=== PATIENT | female | born 1985 | race Caucasian/White ===

== ENCOUNTER 2017-05-11 22:53 | Observation (INO) | payer BC ==
[~2017-05-11] VITALS: Ht 182.9 cm; Wt 111.0 kg
[2017-05-11 23:12] LABS: HEMATOCRIT 42.5 % (34.6-47.8); HEMOGLOBIN 14.5 g/dL (11.7-16.4); WHITE BLOOD COUNT 16.3 x10^3/uL (3.4-10)
[2017-05-11 23:17] LABS: DAU SCREEN DISCLAIMER
[2017-05-11 23:20] LABS: ASPARTATE AMINO TRANSFERASE 16 U/L (15-37); BLOOD UREA NITROGEN 10 mg/dL (7-18)
[2017-05-11 23:27] LABS: ACETAMINOPHEN < 2 mcg/mL (10-30)
[2017-05-11] MEDS ORDERED: LURA60TA PO (23:40)
[2017-05-11] MEDS ORDERED: LITH300T30 PO (23:41)
[2017-05-11] MEDS ORDERED: VENL150C PO (23:42)
[2017-05-11] MEDS ORDERED: SPIR100T2 PO (23:42)
[2017-05-11] MEDS ORDERED: DIAZ2TAB3 PO (23:43)
[2017-05-12] MEDS ORDERED: ONDANSETRON ODT 4 MG PO PRN (04:00)
[2017-05-12] MEDS ORDERED: ACETAMINOPHEN 325 MG TABLET PO PRN (04:00)
[2017-05-12 04:02] VITALS: BP 128/84
[2017-05-12 08:27] VITALS: BP 122/81
[2017-05-12] MEDS ORDERED: LURASIDONE 20 MG TABLET PO SCH (09:00)
[2017-05-12] MEDS ORDERED: DIAZEPAM 2 MG TABLET PO SCH (09:00)
[2017-05-12] MEDS ORDERED: SPIRONOLACTONE 100 MG TABLET PO SCH (09:00)
[2017-05-12] MEDS ORDERED: VENLAFAXINE 75 MG CAP ER PO SCH (09:00)
[2017-05-12] MEDS ORDERED: LITHIUM CARBONATE 300 MG TABLET.ER PO SCH (09:00)
== END 2017-05-12 12:37 ==
LOC: ED 23:59 → EDIP 05-12 00:21 → 3E 05-12 03:51
PROVIDERS: ADMIT Hospitalist; ATTEND Hospitalist
DX: R45.851 Suicidal ideations (principal); D72.829 Elevated white blood cell count, unspecified; F31.9 Bipolar disorder, unspecified; F20.9 Schizophrenia, unspecified; F64.9 Gender identity disorder, unspecified; Z91.5 Personal history of self-harm
CPT/HCPCS: 36415; 80053; 80307; 80329; 81003; 85025; 99285; G0378; G0479; G0480